=== PATIENT | female | born 1960 | race Caucasian/White ===

== ENCOUNTER → 2016-06-13 | Outpatient (CLI) | payer OTHER ==
[~2016-06-13] MED LIST: ABILIFY20 MG PO; ANTACID II 1601 CTB PO; ASPIR LOW81 MG PO; ATIVAN1 MG PO; ATIVAN2 M1 PO; ATOXIMETIN-B1 CAP; BENTYL10 MG PO; BENZTROPINE MESY1 MG PO; CIPRO500 MG PO; CITALOPRAM10 MG PO; COGENTIN0.5 MG PO; DEPAKOTE ER500 MG PO; DIVALPROEX SOD250 MG PO; EPIPEN1 MG/ML MR; FEOSOL325 MG PO; FLAGYL500 MG PO; HYDROCODONE BIT1 T11 PO; HYOSCYAMINE0.125 M5 PO; LIPITOR10 MG PO; LIPITOR40 MG PO; LISINOPRIL20 MG PO; MAGNESIUM OXID400 MG PO; MELOXICAM7.5 MG PO; MOTRIN800 MG PO; OLANZAPINE20 MG PO; OMEPRAZOLE40 MG PO; PRAVACHOL20 MG PO; PREDNISONE20 M1 PO; PRILOSEC20 M1 PO; PROAIR HFA8.5 GM INH; PYRIDIUM100 MG PO; REQUIP0.5 MG PO; RESTORIL15 MG PO; RISPERDAL2 M1 PO; RISPERDAL4 M1 PO; SEROQUEL100 MG PO; Synthroid,Levo75 MCG PO; VITAMIN D1000 IU PO; VITAMIN D350000 UNIT PO; VITAMIN D50000 I1 PO; VITAMIN D50000 I3 PO; ZANTAC 150150 MG PO; ZESTRIL20 MG PO; ZOLOFT50 MG PO
== END | disposition home or self-care (01) ==
LOC: ORTHO 03:41
DX: M17.12 Unilateral primary osteoarthritis, left knee (principal); M25.762 Osteophyte, left knee

== ENCOUNTER → 2017-01-16 | Outpatient (CLI) | payer MEDICAID | END | disposition home or self-care (01) | LOC: MRI 14:23 | DX: M47.897 Other spondylosis, lumbosacral region (principal) ==

== ENCOUNTER → 2017-05-29 | Outpatient (CLI) | payer MEDICAID | END | disposition home or self-care (01) | LOC: ORTHO 00:15 | DX: M17.12 Unilateral primary osteoarthritis, left knee (principal) ==

== ENCOUNTER → 2017-06-12 | Outpatient (CLI) | payer MEDICAID | END | disposition home or self-care (01) | LOC: ORTHO 02:39 | DX: M25.552 Pain in left hip (principal); M25.551 Pain in right hip ==

== ENCOUNTER → 2018-02-02 | Outpatient (CLI) | payer MEDICAID | END | disposition home or self-care (01) | LOC: ORTHO 07:12 | DX: M25.561 Pain in right knee (principal) ==

== ENCOUNTER → 2018-04-02 | Outpatient (CLI) | payer MEDICAID | END | disposition home or self-care (01) | LOC: ORTHO 01:09 | DX: M25.521 Pain in right elbow (principal) ==

== ENCOUNTER → 2018-04-30 | Outpatient (CLI) | payer MEDICAID | END | disposition home or self-care (01) | LOC: ORTHO 03:55 | DX: M25.512 Pain in left shoulder (principal) ==

== ENCOUNTER 2018-10-25 17:00 | Emergency (ER) | payer MEDICAID ==
[~2018-10-25] VITALS: Ht 167.6 cm; Wt 128.8 kg
[2018-10-25 17:01] VITALS: BP 159/57
== END 2018-10-25 19:45 | disposition home or self-care (01) ==
LOC: ED 17:00
DX: S80.01XA Contusion of right knee, initial encounter (principal); M25.551 Pain in right hip; Z79.899 Other long term (current) drug therapy; Z79.82 Long term (current) use of aspirin; Z88.0 Allergy status to penicillin; Z91.030 Bee allergy status; Z88.8 Allergy status to other drugs, medicaments and biological substances; W01.0XXA Fall on same level from slipping, tripping and stumbling without subsequent striking against object, initial encounter; Y93.01 Activity, walking, marching and hiking; Y92.89 Other specified places as the place of occurrence of the external cause; Y99.8 Other external cause status

== ENCOUNTER → 2018-11-05 | Outpatient (CLI) | payer MEDICAID ==
[~2018-11-05] MED LIST changes: +ARTHRITIS PAIN57 GM T; +DEPAKOTE ER250 MG PO; +DIVALPROEX SOD125 M1 PO; +FANAPT2 MG PO; +FANAPT8 MG PO; +HYDROXYZINE PAM25 M1 PO; +RISPERDAL3 M1 PO; -RISPERDAL4 M1 PO; +ROPINIROLE HYDRO1 MG PO; +ROPINIROLE HYDRO2 M2 PO; +ROZEREM8 MG PO; +SYNTHROID,LEV112 MCG PO; +TYLENOL EXTRA500 MG PO; +ZOLOFT100 MG PO
== END | disposition home or self-care (01) ==
LOC: ORTHO 01:36
DX: M70.61 Trochanteric bursitis, right hip (principal); M16.11 Unilateral primary osteoarthritis, right hip

== ENCOUNTER 2018-11-16 12:38 | Inpatient (IN) | payer MEDICAID ==
[~2018-11-16 12:38] MED LIST changes: -ARTHRITIS PAIN57 GM T; -DEPAKOTE ER250 MG PO; -DIVALPROEX SOD125 M1 PO; -FANAPT2 MG PO; -FANAPT8 MG PO; -HYDROXYZINE PAM25 M1 PO; -ROPINIROLE HYDRO1 MG PO; -ROPINIROLE HYDRO2 M2 PO; -ROZEREM8 MG PO; -SYNTHROID,LEV112 MCG PO; -TYLENOL EXTRA500 MG PO; -ZOLOFT100 MG PO
[2018-11-16 12:44] VITALS: BP 136/88
[2018-11-16 13:07] LABS: BILIRUBIN NEGATIVE (NEGATIVE); BLOOD NEGATIVE (NEGATIVE); CLARITY CLEAR (CLEAR); COLOR YELLOW (YELLOW); GLUCOSE NEGATIVE (NEGATIVE); KETONE NEGATIVE (NEGATIVE); LEUKO ESTERASE NEGATIVE (NEGATIVE); NITRITE NEGATIVE (NEGATIVE); PH 5.5 (5.0-9.0); SPECIFIC GRAVITY <= 1.005 (1.005-1.030); UROBILINOGEN 0.2 E.U./dl (0.2-1.0)
[2018-11-16 13:16] LABS: BACTERIA TRACE
[2018-11-16 13:17] LABS: URINE AMPHETAMINES < 1000 (1000ng/ml); URINE BARBITURATES < 200 (200ng/ml); URINE BENZODIAZEPINES < 200 (200ng/ml); URINE CANNABINOIDS (THC) < 50 (50ng/ml); URINE COCAINE < 300 (300ng/ml); URINE METHADONE < 300 (300ng/ml); URINE OPIATES < 300 (300ng/ml)
[2018-11-16 13:18] LABS: URINE PHENCYCLIDINE < 25 (25ng/ml)
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
[2018-11-16 14:01] LABS: BASO % 0.4 % (0.0-1.0); EOS % 0.5 % (1.0-4.0); HEMATOCRIT 32.2 % (37.0-47.0); HEMOGLOBIN 10.6 g/dl (12.0-16.0); LYMPH # 0.9 10*3/uL (1.3-4.4); LYMPH % 11.2 % (27.0-41.0); MEAN CELL VOLUME 95.5 fl (81.0-99.0); MEAN CORPUSCULAR HGB 31.5 pg (27.0-31.0); MEAN CORPUSCULAR HGB CONC 32.9 g/dl (33.0-37.0); MEAN PLATELET VOLUME 9.1 fl (9.6-12.3); MONO # 0.7 10*3/uL (0.1-1.0); MONO % 8.6 % (3.0-9.0); NEUT # 6.3 10*3/uL (2.3-7.9); PLATELET COUNT AUTOMATED 238 10*3/uL (130-400); RED BLOOD COUNT 3.37 10*6/uL (4.10-5.10); RED CELL DISTRI WIDTH 12.4 % (0-14.5); WHITE BLOOD COUNT 7.9 10*3/uL (4.8-10.8)
[2018-11-16 14:16] LABS: ALBUMIN 3.7 gm/dl (3.1-4.5); ALKALINE PHOSPHATASE 73 U/L (45-117); BUN 24 mg/dl (7-24); CHLORIDE 96 mmol/L (98-107); CREATININE 1.03 mg/dL (0.55-1.02); POTASSIUM 3.8 mmol/L (3.5-5.1); SGOT/AST 19 IU/L (3-35); SGPT/ALT 20 U/L (12-78); SODIUM 130 mmol/L (136-145)
[2018-11-16 14:21] LABS: ACETAMINOPHEN (TYLENOL) < 5.0 ug/ml (10-30); ETHYL ALCOHOL < 3.0 mg/dl (<3)
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
[2018-11-16 15:11] VITALS: BP 144/90
[2018-11-16 15:32] VITALS: BP 136/44
--- NOTE | 2018-11-16 15:32 | NUR ---
A 58, admitted to 5E, under the services of NOLAN Lane DO with a diagnosis of HYPONATREMIA. Chief complaint is PSYCHOLOGICAL COMPLAINTS. Patient arrived via bed from ER. Monitor applied. Initial assessment completed. Vital signs taken and recorded. NOLAN LANE DO notified of admission to the unit. Orders received. See assessment for past medical history, medications and allergies. Patient and/or family oriented to unit. [facility] visitation policy reviewed. Clothing/patient valuable form completed. MICHELLE PARHAM
[2018-11-16 16:00] VITALS: BP 128/54
--- NOTE | 2018-11-16 16:00 | NUR ---
PT STATES "DONT CALL SECURITY ON ME" SEEMS PARANOID AT THIS MOMENT. WILL MONITOR.
[2018-11-16] MEDS ORDERED: SYNTHROID,LEV112 MCG PO (16:02)
[2018-11-16] MEDS ORDERED: TYLENOL EXTRA500 MG PO (16:03)
[2018-11-16] MEDS ORDERED: OMEPRAZOLE40 MG PO (16:03)
--- NOTE | 2018-11-16 16:30 | NUR ---
[facility] NOTIFIED OF CONSULT
--- NOTE | 2018-11-16 17:01 | NUR ---
DR. KRAMER NOTIFIED OF COMPLETE MED REC
--- NOTE | 2018-11-16 18:17 | NUR ---
YANA CONSULTED AND WILL SEE PT TOMORROW.
--- NOTE | 2018-11-16 19:00 | NUR ---
ARRIVED ON SHIFT, INTRODUCED TO PATIENT, REPORT RECEIVED, WHITE BOARD UPDATED.
--- NOTE | 2018-11-16 19:06 | NUR ---
PT YELLS OUT, GO IN PT ROOM, SHE STATES SHE DID NOT YELL OUT OR NEED ANYTHING. WILL CONTINUE TO ASSESS NEEDS.
[2018-11-16 20:00] VITALS: BP 149/57
--- NOTE | 2018-11-16 20:41 | NUR ---
24 HR chart check completed.
--- NOTE | 2018-11-16 21:03 | NUR ---
PATIENT C/O BACK 05/16 AND REQUESTING SOMETHING FOR SLEEP, MEDICATED WITH TYLENOL AND RESTORIL ORDERED.
--- NOTE | 2018-11-16 22:03 | NUR ---
TYLENOL EFFECTIVE FOR PAIN, RESTORIL INEFFECTIVE PATIENT REMAINS AWAKE, SHE STATES "I AM BIPOLAR AND IN MY MANIC PHASE.
[2018-11-17] VITALS: BP 160/88
--- NOTE | 2018-11-17 00:04 | NUR ---
WENT IN TO PATIENTS ROOM TO ANSWER CALL LIGHT, SHE WAS LAYING IN BED WITH HER FINGER ON THE CALL LIGHT,SHE HAD PUULLED HER GOWN UP TO HER CHEST, I ASKED PATIENT WHAT I COULD HELP HER WITH, SHE STARTED YELLING, "I NEED TO TAKE A SHIT", I REMIND THE PATIENT I GAVE HER A DULCOLAX TAB AND IT MAY TAKE AWHILE TO WORK. SHE YELLED GET THE HELL OUT OF MY ROOM, I WANT THE SHAPE CARVER AND SECURITY. I NOTIFIED ELMO, WHO WAS TO COME DOWN AND SEE PATIENT.
--- NOTE | 2018-11-17 04:00 | NUR ---
Patient has not slept all night, she frequenly uses call light or yells out. She has been out in the cerna twice requesting the bedside commode which is in her room. She has scribbled nots on several different papers and requests for staff to read what she has weitten. She continually apologizes and states "I'm Bipolar, and I am in my manic phase." she yells, and tells staff get the hell out of her room.
[2018-11-17 06:37] LABS: BASO % 0.3 % (0.0-1.0); EOS # 0.1 10*3/uL (0.0-0.4); EOS % 0.8 % (1.0-4.0); HEMATOCRIT 31.2 % (37.0-47.0); LYMPH # 1.1 10*3/uL (1.3-4.4); LYMPH % 17.5 % (27.0-41.0); MEAN CELL VOLUME 97.2 fl (81.0-99.0); MEAN CORPUSCULAR HGB 31.2 pg (27.0-31.0); MEAN CORPUSCULAR HGB CONC 32.1 g/dl (33.0-37.0); MEAN PLATELET VOLUME 9.2 fl (9.6-12.3); MONO # 0.5 10*3/uL (0.1-1.0); MONO % 8.6 % (3.0-9.0); NEUT # 4.4 10*3/uL (2.3-7.9); NEUT % 72.5 % (47.0-73.0); PLATELET COUNT AUTOMATED 239 10*3/uL (130-400); RED BLOOD COUNT 3.21 10*6/uL (4.10-5.10); RED CELL DISTRI WIDTH 12.5 % (0-14.5); WHITE BLOOD COUNT 6.1 10*3/uL (4.8-10.8)
--- NOTE | 2018-11-17 06:54 | NUR ---
PHYSICAL THERAPY PT EVAL ATTEMPTED TODAY HOWEVER PATIENT IS BEING TRANSFERRED TO U AND THEREFORE PT ORDER IS CANCELLED AND PATIENT WILL REQUIRE NEW REFERRAL TO BE EVALUATED. THANK YOU FOR REFERRAL OZZIE MAHONEY PT
[2018-11-17 07:07] LABS: BUN 21 mg/dl (7-24); CHLORIDE 105 mmol/L (98-107); CHOLESTEROL 129 mg/dL (<200); CREATININE 0.92 mg/dL (0.55-1.02); PHOSPHOROUS 2.8 mg/dL (2.5-4.9); POTASSIUM 4.2 mmol/L (3.5-5.1); SODIUM 138 mmol/L (136-145); TRIGLYCERIDES 113 mg/dl (<150); VLDL CHOLESTEROL 23 mg/dL (6-40)
[2018-11-17 07:17] LABS: HDL CHOLESTEROL 54 mg/dl (40-60); LDL CHOLESTEROL 52 mg/dL (9-159)
[2018-11-17 08:00] VITALS: BP 155/73
--- NOTE | 2018-11-17 09:00 | NUR ---
PATIENT SCREAMING OUT MULTIPLE TIMES. WHEN STAFF ENTERS ROOM. SHE STARTS TALKING ABOUT MULTIPLE ISSUES. JUMPING FROM ONE TO ANOTHER TO ANOTHER. VERY DIFFICULT TO REDIRECT. PATIENT SCREAMS AT STAFF AND THEN WILL CALM DOWN AND SPEAK.
--- NOTE | 2018-11-17 10:15 | NUR ---
CALLED RICHIE PARDO REGARDING CONSULT. STATES SHE WILL BE IN TODAY TO SEE PATIENT.
--- NOTE | 2018-11-17 11:15 | NUR ---
RICHIE PARDO CALLED BACK. SHE WAS ABLE TO CONTACT [facility] AND VERIFY PATIENTS HOME MEDICATIONS. MEDICATION RECONCILLIATION COMPLETED AND DR. PORRAS NOTIFIED.
[2018-11-17] MEDS ORDERED: RESTORIL15 MG PO (11:24)
[2018-11-17] MEDS ORDERED: ROPINIROLE HYDRO2 M2 PO (11:26)
[2018-11-17] MEDS ORDERED: ATIVAN1 MG PO (11:27)
[2018-11-17] MEDS ORDERED: DEPAKOTE ER250 MG PO (11:28)
[2018-11-17] MEDS ORDERED: ZOLOFT100 MG PO (11:39)
--- NOTE | 2018-11-17 11:55 | NUR ---
client is known to me and i did see her in the er yesterday, but she had taken her depakote and her ativan so she was calm, she has not taken her meds for 4 days because they were at the neighbors, she was admitted medically and then through the night and am she was yelling, her nurse called to see if i could find out her home medications i did contact the [facility] and was able to get her medications, i did call and tell her nurse and she told me that she is going to be admitted to the [facility] here.
--- NOTE | 2018-11-17 13:40 | NUR ---
PATIENT DISCHARGED TO U. ALL PERSONAL BELONGINGS SENT WITH PATIENT. IV DISCONTINUED. DISCHARGE INSTRUCTIONS GIVEN AND REVIEWED. REPORT GIVEN TO U RN.
== END 2018-11-17 13:40 | disposition home health service (06) | DRG 426 ==
LOC: ED 12:38 → EDHOLD 15:02 → 5E 15:20
PROVIDERS: Emergency Medicine; Physician Assistant; Student in an Organized Health Care Education/Training Program; ADMIT Family Medicine
DX: E87.1 Hypo-osmolality and hyponatremia (principal); F31.10 Bipolar disorder, current episode manic without psychotic features, unspecified; R73.9 Hyperglycemia, unspecified; K21.9 Gastro-esophageal reflux disease without esophagitis; E03.9 Hypothyroidism, unspecified; M16.9 Osteoarthritis of hip, unspecified; E66.01 Morbid (severe) obesity due to excess calories; J45.909 Unspecified asthma, uncomplicated; I12.9 Hypertensive chronic kidney disease with stage 1 through stage 4 chronic kidney disease, or unspecified chronic kidney disease; N18.3 Chronic kidney disease, stage 3 (moderate); E55.9 Vitamin D deficiency, unspecified; D50.9 Iron deficiency anemia, unspecified; Z88.0 Allergy status to penicillin; Z88.8 Allergy status to other drugs, medicaments and biological substances; Z91.030 Bee allergy status; Z90.49 Acquired absence of other specified parts of digestive tract; Z90.710 Acquired absence of both cervix and uterus; Z90.79 Acquired absence of other genital organ(s); Z90.722 Acquired absence of ovaries, bilateral; Z82.49 Family history of ischemic heart disease and other diseases of the circulatory system; Z82.61 Family history of arthritis; Z82.3 Family history of stroke; Z83.3 Family history of diabetes mellitus; Z83.6 Family history of other diseases of the respiratory system; Z79.899 Other long term (current) drug therapy; Z79.82 Long term (current) use of aspirin; Z79.890 Hormone replacement therapy; Z68.42 Body mass index [BMI] 45.0-49.9, adult

== ENCOUNTER 2018-11-17 12:46 | Inpatient (IN) | payer MEDICAID ==
[~2018-11-17 12:46] MED LIST changes: +DEPAKOTE ER250 MG PO; +ROPINIROLE HYDRO2 M2 PO; +SYNTHROID,LEV112 MCG PO; +TYLENOL EXTRA500 MG PO; +ZOLOFT100 MG PO
--- NOTE | 2018-11-17 13:36 | NUR ---
RODNEY WILLOUGHBY a 58 year old F admitted via wheel chair from the ADMITTING as a voluntary admission. Arrived on unit at 1336. ALLERGIES: BEE STING,PCN,RED 40, CYCLOBENZAPRINE, DEXAMETHASONE, DIPHENHYDRAMINE, ETODOLAC, NABUMETONE. Vital signs are: [id number] 142/68. The client signed the following forms with stated understanding: Authorization For The Release of Medical Information, Clothing List, Consent to Voluntary Admission and Hospitalization, Consent and Release Forms/Receipt of Rights, Acknowledgement of Advance Directive Information, Behavioral Health Consent Form, and Informed Consent of Medications. Admitted under the services of Dr. SERGIO SHAH,[facility]. A search was conducted and hazardous articles were removed. Client was oriented to the unit. RICHIE MENJIVAR
[2018-11-17 13:42] VITALS: BP 142/68
--- NOTE | 2018-11-17 15:31 | NUR ---
DR. BARLOW NOTIFIED OF NEW ADMISSION. MEDICATIONS AND DIAGNOSIS LIST UPDATED FOR REVIEW. PATIENT WILL BE UNDER THE ARE OF DR. BARLOW.
--- NOTE | 2018-11-17 16:07 | NUR ---
PM/LEISURE SKILLS/MUSIC PT ATTENDED ALF THROUGH GROUP DUE JUST BEING ORIENTED TO UNIT. PT EXCITED TO WORK ON COLORING PICTURES AND HAS MANY INTERESTS. DUE TO PT JUST BEING ADMITTED THIS STAFF WILL PLAN TO DO ACTIVITY ASSESSMENT ON PT TOMORROW MORNING. PT WILL CONTINUE TO BE ENCOURAGED TO ATTEND AND PARTICIPATE IN FUTRUE GROUP SESSIONS.
--- NOTE | 2018-11-17 18:33 | NUR ---
P: VERBAL AGGRESSION, DISRUPTIVE TO MILIEU, SCREAMING AT FEMALE IMAGING TECHNOLOGIST "GET HER OFF THE UNIT, I DON'T WANT HER HERE, SHE A LESBIAN" DURING ADMISSION INTERVIEW PATIENT INFORM NURSE OF NOT WANTING ANY GAYS/LESBIAN ASSISTING WITH HER TO DEESCULATE WHEN BECOMING STRESSED. GAYS/LESBIANS ARE NOT MEANT TO BE, IT'S NOT IN THE BIBLE. PATIENT VOICING PARANOID STATEMENT "2 PEOPLE IN HER APARTMENT COMPLEX THREATENING MY LIFE" I: ONE ON ONE AND REDIRECTION PROVIDED R: EFFECTIVE; PATIENT IS ALERT TO PERSON, PLACE, TIME AND SITUATION; ABLE TO VOICE NEEDS. MOOD IS ANGRY /IRRITABLE,PARANOID AND LABILE. PREOCCUPIED WITH PAST TRAMATIC EVENTS AND MEDICATIONS. RAPID SPEECH-MANIC. MEDICATION COMPLIANT. Q 15 MINUTE SAFETY CHECKS MAINTAINED. 2 PERSON ASSIST WITH ALL INTERACTIONS. VERBAL CUEING WITH ACTIVITIES OF DAILY LIVING, CONTINENT OF BOWEL AND BLADDER. SET UP FOR MEALS, INTAKES ARE GOOD. AMBULATORY WITH STEADY GAIT. P: CONTINUE TO MONITOR FOR VERBAL AGGRESSION, INCREASED AGITATION AND BEING DISRUPTIVE TO MILIEU. CONTINUE TO PROVIDE ONE ON ONE; LIMIT SETTING; ENCOURAGE TO SIT IN QUIET ROOM FOR STIMULUS WHEN FEELING STRESSED AND PROVIDE SPACE NEEDED.
[2018-11-17 19:55] VITALS: BP 150/76
--- NOTE | 2018-11-17 20:01 | NUR ---
ON UNIT TO SEE PATIENT AT THIS TIME.
[2018-11-17 20:23] VITALS: BP 146/72
--- NOTE | 2018-11-17 21:51 | NUR ---
P-PATIENT LABILE WITH FOI. INTRUSIVE AT TIMES. PREOCCUPIED WITH A PREVIOUS FEMALE MANAGER MATERIAL AND STATING "I DONT WANT THAT LESBIAN UP HERE". SELECTIVE WITH HS MEDICATIONS. DELUSIONAL. I- 1:1 PROVIDED WITH REDIRECTION. REALITY PRESENTED. ENCOURAGED MEDICATION COMPLIANCE WITH EDUCATION. R- INTERVENTIONS MINIMALLY EFFECTIVE, PT REMAINS PREOCCUPIED WITH CERTAIN STAFF AND "LESBIANS". PT ALSO CONTINUES TO MAKE DELUSIONAL STATEMENTS IN REGARDS TO BEING OR JUST HAVING A BABY. PT DEMANDING/INTRUSIVE. PT REQUIRES FREQUENT REDIRECTION THROUGHOUT SHIFT. PT REFUSED HS DOSE OF DEPAKOTE DESPITE EDUCATION STATING "I REFUSE IT BECAUSE I DONT LIKE PINK, IM NOT TAKING IT", PT COMPLIANT WITH REMAINING MEDICATIONS. PT ALERT AND ORIENTED X4. NO PHYSICAL COMPLAINTS VOICED. P-CONTINUE TO MONITOR MOODS AND BEHAVIORS. PROVIDE 1:1 WITH REDIRECTION AND LIMIT SETTING NEEDED. ENCOURAGE MEDICATION COMPLIANCE. MAINTAIN Q 15 MIN CHECKS.
--- NOTE | 2018-11-18 01:54 | NUR ---
24 HOUR CHART CHECK COMPLETED.
--- NOTE | 2018-11-18 05:27 | NUR ---
PATIENT OBSERVED ON Q 15 MIN CHECKS TO HAVE SLEPT APPROX 6 HOURS INTERRUPTED WITH MULTIPLE AWAKENINGS TO HIT THE CALL LIGHT WITH VARIOUS WANTS AND DEMANDS. PT REQUIRES FREQUENT PROMPTING TO COMPLETE ADL'S INDEPENDENTLY, PT STATES "I CANT, IM ". INCONTINENT CARE PROVIDED X1. PT ALSO REDIRECTED ON MULTIPLE OCCASIONS ON APPROPRIATE BEHAVIOR, PT ATTEMPTED TO WALK AROUND ROOM NAKED IN FRONT OF ROOMMATE, PT ALSO ENTERED HALLWAY WITH ONLY A BLANKET COVERING HER. SIGNS OR SYMPTOMS OF DISTRESS NOTED.
[2018-11-18 06:37] LABS: THYROID STIM HORMONE (HS) 1.94 uIU/ml (0.358-4.75)
[2018-11-18 07:29] LABS: VITAMIN D, 25-HYDROXY 58.2 ng/mL (30-100)
[2018-11-18 08:03] VITALS: BP 164/82
--- NOTE | 2018-11-18 09:55 | NUR ---
DR. WONG ON UNIT TO ASSESS PATIENT.
--- NOTE | 2018-11-18 09:59 | NUR ---
psychosocial hx completed this date.
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
--- NOTE | 2018-11-18 15:04 | NUR ---
Shift chart check completed.
[2018-11-18 15:25] VITALS: BP 150/86
--- NOTE | 2018-11-18 17:48 | NUR ---
PATIENT COMPLAINING OF BILATERAL KNEE PAIN, RATING 10/10, BONE ON BONE. PRN TYLENOL 650MG PO GIVEN AT THIS TIME FOR PAIN. ALSO ENCOURAGED PATIENT TO EVELAVATE LOWER LEGS.
--- NOTE | 2018-11-18 19:21 | NUR ---
P: HYPERVERBAL- FOLLOWING STAFF, DEMENDING AT TIMES. MANIC. HIGH GIGGLE DURING MOVIE, AMINATED DURING INTERACTIONS. I: ONE ON ONE, REDIRECTION, CHANGE OF ENVIRONMENT WITH LOW STIMULI, LIMIT SETTING. R: EFFECTIVE; PATIENT IS ALERT X 4; ABLE TO VOICE NEEDS. MOOD IS LABILE, PREOCCUPIED, PARANOID; DENIES ANY HALLUCINATIONS, DELUSIONS, HI/SI. TYLENOL 650MG GIVEN AND EFFECTIVE. INDEPENDENT WITH ACTIVITIES OF DAILY LIVING, CONTINENT OF BOWEL AND BLADDER, SET UP FOR MEALS, INTAKES ARE GOOD WITH GOOD FLUID INTAKE. AMBULATORY WITH STEADY GAIT. MEDICATION COMPLAINT WITH EDUCATION PROVIDED. Q 15 MINUTE SAFETY CHECKS MAINTAINED. P: CONTINUE TO MONITOR FOR HALLUCINATIONS, DELUSION; PROVIDE ONE ON ONE, REDIRECTION, LIMIT SETTING AND SPACE NEEDED.
[2018-11-18 20:00] VITALS: BP 151/83
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
--- NOTE | 2018-11-19 00:39 | NUR ---
TYLENOL GIVEN FOR C/O RIGHT KNEE PAIN 09/15
--- NOTE | 2018-11-19 00:58 | NUR ---
CLIENT OUT TO DESK. STATES SHE IS HAVING BAD THOUGHTS. WENT TO HER ROOM. SHE HAD FLIGHT OF IDEAS, PERSECUTORY STORIES. CLIENT UNABLE TO FINISH A STORY WITHOUT CHANGING SUBJECT. STATES "I AM MANIC" REDIRECTED THAT SHE IS NOT AND IS JUST ANXIOUS. SHE REPLIED. "OH GOOD", ENCOURAGED HER TO GET SOME SLEEP AND WE WILL TALK IN THE MORNING
--- NOTE | 2018-11-19 03:46 | NUR ---
APPEARS TYLENOL EFFECTIVE
--- NOTE | 2018-11-19 04:00 | NUR ---
24 HR chart check completed.
--- NOTE | 2018-11-19 04:57 | NUR ---
SNORING IN ROOM. CIENT REFUSES TO LEAVE CLOTHING ON. SHEET OVER HER. DOOR CLOSED.
--- NOTE | 2018-11-19 06:41 | NUR ---
MEDICATIONS COMPLIANT. SLEPT LESS THAN 2 HOURS. INFORMED ME SHE WAS GOING TO SLEEP IN SHE WAS TIRED. EXPLAINED THAT IS WHY I WANTED HER TO SLEEP LAST NIGHT. REINFORCED MEETINGS WITH DR HILL, CASE MANAGEMENT, SWISS MACHINIST. THAT BREAKFAST WOULD BE HERE IN ABOUT AND HOUR THEN GROUP THERAPIES WILL BEGIN. VERBALIZED UNDERSTANDING.
--- NOTE | 2018-11-19 07:45 | NUR ---
PATIENT SITTING IN DINING ROOM WITH PEERS, EATING BREAKFAST. NO S/S OF DISTRESS NOTED. RESPS EVEN AND UNLABORED ON ROOM AIR.
[2018-11-19 08:00] VITALS: BP 130/60
--- NOTE | 2018-11-19 08:00 | NUR ---
Treatment Plan meeting with Dr. Martinez, RN, AT, SW and Cabinetmaker Apprentice. Plan for discharge at the end of the week, begininng of next week. Plan is for pt. to return home.
--- NOTE | 2018-11-19 08:33 | NUR ---
Nursing screen and Occupational Therapy referral received. Thank you. Jodi Ruiz OTR/L
--- NOTE | 2018-11-19 09:12 | NUR ---
PHYSICAL THERAPY Nursing screen received and chart reviewed. Physical therapy referral received. Thank you. Yeimy Bauer,PT,DPT.
--- NOTE | 2018-11-19 10:37 | NUR ---
Pt was hyperverbal and displaying flight of ideas as she met with this technical writer and editor in the AM. Pt spoke of her teeth, her dentist, her picture that she had colored, and of getting a little therapy dog.
--- NOTE | 2018-11-19 11:41 | NUR ---
AM GROUP/EXERCISE AND PARACHUTE PT ATTENDED AND PARTICIPATED IN ALL GROUP ACTIVITIES. PT EXHIBITED NO AGITATION AND WAS NOT VERBALLY AGGRESSIVE. PT WAS TALKATIVE BUT ON TASK.
--- NOTE | 2018-11-19 13:07 | NUR ---
Shift chart check completed.
--- NOTE | 2018-11-19 13:34 | NUR ---
PHYSICAL THERAPY Physical therapy evaluation attempted. Patient refusing PT evaluation, stating, "I'm really tired because of my pills. Can we do it another time?" Plan to return at a later date to complete PT evaluation. Thank you. Yeimy Bauer,PT,DPT
--- NOTE | 2018-11-19 13:46 | NUR ---
Occupational therapy orders received and chart reviewed. Patient was in bed upon OT/PT arrival. Patient stating that she "fell at home" recently. Patient not feeling up to the evaluation, stating "another time." OT will follow up with patient to complete the OT evaluation and POC. Thank you. Tonya Saldana, OTR/L
--- NOTE | 2018-11-19 14:42 | NUR ---
P- HYPERVERBAL. EUTHYMIC. RESTLESS. LETHARGIC. GRANDIOSE, SOMATIC. INTRUSSIVE, DEMANDING AT TIMES. I- ASSESS MOOD, ORIENTATION, SI/HI, HALLUCINATIONS, DELUSIONS, OR PAIN. PROVIDE WITH MEDICATIONS ON TIME WITH EDUCATION ON EACH. 1:1 THERAPEUTIC INTERACTION WITH EMOTIONAL SUPPORT AND VENTILATION OF FEELINGS PROVIDED. ENCOURAGE TO ATTEND/PARTICIPATE IN GROUP THERAPIES. OFFER LOW STIMULI ENVIRONMENT. PROVIDE WITH ACTIVITIES. ENCOURAGE TO STAY ON ONE TOPIC WHEN CONVERSING. OFFER COPING TECHNIQUES AND DEEP BREATHING. R- ALERT AND ORIENTED X3. MOOD STABLE, EUTHYMIC. DENIES SI/HI, HALLUCINATIONS OR PAIN. PATIENT PACING FROM ROOM TO DINING ROOM. HYPERVERBAL, CIRCUMSTANTIAL. PREOCCUPIED AND SOMATIC. PT STATED "I AM SO MANIC I FORGOT TO BREATHE". 1:1 INTERACTION EFFECTIVE. PT UTILIZING DEEP BREATHING. ATTENDING AND PARTICIPATING IN GROUP THERAPY. MEDICATION COMPLIANT. PT LAYING IN BED, STATING THAT SHE IS VERY TIRED FROM HER MEDICATION ADJUSTMENT. PT THEN WAS UP A FEW MINUTES LATER HYPERVERBAL, WALKING FROM ROOM TO DINING ROOM, AND GOING THROUGH COLORING PAGES TRYING TO GET OTHERS TO COLOR WITH HER. EATING AND DRINKING ADEQUATELY. GAIT STEADY WHILE AMBULATING. NO S/S OF INTERACTING WITH INTERNAL STIMULI. NO S/S OF DISTRESS NOTED. RESPS EVEN AND UNLABORED ON ROOM AIR. 1:1 EFFECTIVE. P- ASSESS MOOD, ORIENTATION, SI/HI, HALLUCINATIONS, DEULSIONS OR PAIN EVERY SHIFT. PROVIDE WITH MEDICATIONS ON TIME WITH EDUCATION ON EACH. 1:1 THERAPEUTIC INTERACTION WITH EMOTIONAL SUPPORT AND VENTILATION OF FEELINGS. ENCOURAGE TO USE COPING TECHNIQUES AND DEEP BREATHING. ENCOURAGE TO ATTEND/PARTICIPATE IN GROUP THERAPY. FALLING STAR PROGRAM IN PLACE. Q15 MINUTE CHECKS MAINTAINED FOR SAFETY.
--- NOTE | 2018-11-19 16:51 | NUR ---
PM GROUP/LEISURE SKILLS PT ATTENDED AND PARTICIPATED IN GROUP. PT DID NOT BECOME AGITATED OR VERBALLY AGGRESSIVE AT THIS TIME. PT PLEASANT ON TASK WITH ACTIVITY. PT WILL CONTINUE TO ATTEND AN DPARTICIPATE IN FUTURE GROUP SESSIONS.
[2018-11-19 20:00] VITALS: BP 139/72
--- NOTE | 2018-11-19 20:55 | NUR ---
EVENING GROUP PT ATTENDED AND PARTICIPATED IN ALL GROUP ACTIVITY'S. PT PLEASANT AND ON TASK WITH NO AGITATION OR VERBAL AGGRESSION AT THIS TIME. PT WILL CONTINUE TO ATTEND AND PARTICIPATE IN FUTURE GROUP SESSIONS.
--- NOTE | 2018-11-19 21:18 | NUR ---
P--INTRUSIVE, ATTENTION SEEKING, HYPERVERBAL, DISRUPTIVE I--ORIENTED TO REALITY. REDIRECTION. MEDICATED PER ORDERS. MEDICATION EDUCATION. REVIEWED COPING SKILLS. PREOCCUPIED WITH ALLEGATIONS SHE MADE YESTERDAY (THAT DIDN'T HAPPEN). FLIGHT OF IDEAS R--TALKED TO PHOTOGRAPHER NEWS ABOUT ISSUES FROM YESTERDAY. I AM BEING SO GOOD NOW. I AM GETTING READY TO GO HOME, DO YOU KNOW I TAKE 35 PILLS AT HOME. CAN I GET ATIVAN OR AM I TO DEPENDENT ON THEM? ARGUING JUST ISN'T WORTH IT ANYMORE P--MONITOR Q15 MINUTES AND PRN FOR SAFETY. MONITOR FOR CHANGES IN MOOD/BEHAVIOR. REINFORCE REALITY AND COPING SKILLS
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
--- NOTE | 2018-11-19 23:34 | NUR ---
UPSET THAT SHE HAS TO KEEP NIGHT GOWN ON. WANTS DOOR SHUT SO SHE CAN BE NAKED. REDIRECTED TO KEEPING GOWN OPEN AND TRYING TO REST. WILL MONITOR
--- NOTE | 2018-11-20 00:11 | NUR ---
24 HR chart check completed.
--- NOTE | 2018-11-20 03:26 | NUR ---
continues to fight sleep. calls out for anything to keep her alert. emotional support ineffective. admits to fighting sleep but states unable to help it.
--- NOTE | 2018-11-20 05:19 | NUR ---
HAS SLEPT LESS THAN 3 HOURS BROKEN. UP AND DOWN TO BATHROOM. PUSHING CALL LIGHT THEM SAYS "SORRY IT WAS AN ACCIDENT". UNABLE TO REDIRECT
--- NOTE | 2018-11-20 05:29 | NUR ---
CALLED TO HER ROOM TO SAY SHE WILL READ HER BIBLE TONIGHT AND IT WILL RELAX HER ( SHE HAS DONE THIS THE LAST 2 NIGHTS WITHOUT SUCCESS). CALLING STAFF TO ROOM TO HELP HER STAY AWAKE.
--- NOTE | 2018-11-20 05:42 | NUR ---
IN BATHROOM. EMERGENCY LIGHT ON. WENT INTO ROOM AND SHE AGAIN SAID SORRY HONEY IT WAS AN ACCIDENT. HAVE GONE WITH 2 STAFF MEMBERS ALL SHIFT TO SEE CLIENT
--- NOTE | 2018-11-20 05:55 | NUR ---
TRYING TO COME OUT WITHOUT PANTS ON. HER CLOTHING IS IN DRYER BUT SHE HAS JEANS AND SHE SAYS THEY ARE TOO TIGHT. TOLD TO STAY IN ROOM TILL PANTS DRIED WRAPPING A BLANKET AROUND HERSELF WITH PANTS IS INAPPROPRIATE
--- NOTE | 2018-11-20 06:21 | NUR ---
FOUND CLIENT HAS BEEN HOARDING LINENS, SHEETS AND BLANKETS IN ROOM. ROOM CLEANED AND CLIENT INFORMED DARIN ARREOLA AND MY SELF TALKED TO CLIENT ABOUT HER BEHAVIORS. SHE ADMITTED SHE DOESN'T FOLLOW OUR LESSONS BECAUSE SHE LIKES THE ATTENTION SHE GETS WHEN WE CORRECT HER. TOLD US SHE WAS GETTING A THERAPY DOG AND WHEN ASKED HOW SHE WOULD CARE FOR IT SHE DENIED GETTING A DOG. CLIENT EXIBITING GOOD PATIENT SYNDROME DURING OUR TALKS BUT CONTINUES TO NOT FOLLOW RULES AND REQUESTS.
[2018-11-20 07:50] VITALS: BP 148/67
--- NOTE | 2018-11-20 07:51 | NUR ---
Patient sitting quietly with no c/o discomfort. Respirations easy and regular. Vital signs stable. No overt distress. JENIFFER ROLLINS
--- NOTE | 2018-11-20 08:00 | NUR ---
Treatment Plan meeting with Dr. Martinez, RN, AT, SW and Regulatory Product Manager. Plan for discharge Next week. Pt. will return home.
--- NOTE | 2018-11-20 09:07 | NUR ---
RICHIE PARDO-CEMENT MASON NOTIFIED FOR COUNSELING SERVICES.
--- NOTE | 2018-11-20 10:22 | NUR ---
PT ATTENTION SEEKING THIS AM, WANDERING UP TO VARIOUS STAFF WITH MULTIPLE QUESTIONS, ATTEMPTING TO INTERUPT STAFF FROM 1:1 WITH OTHER PTS. SHE IS MEDICATION COMPLIANT AND AWARE OF MEDICATIONS PURPOSE. CONTINUES TO BE ALERT X 4 GAIT STEADY AT THIS TIME. NO DELUSIONS NOTED NO SI/HI THOUGHT PROCESS AT THIS TIME. CONTINUE 15 MIN CHECKS PER ORDER
--- NOTE | 2018-11-20 11:43 | NUR ---
AM GROUP/LIGHT AND MUSIC THERAPY PT ATTENDED AND PARTICIPATED IN MORNING GROUP THERAPY. PT WAS LESS TALKATIVE THAN YESTERDAY. PT WAS PURPOSEFUL AND ON TASK. PT EXHIBITED NO AGITATION OR VERBAL AGGRESSIVENESS WHILE IN GROUP
--- NOTE | 2018-11-20 12:54 | NUR ---
DR. BAUER ON UNIT TO ASSESS PATIENT FOR PODIATRY.
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
--- NOTE | 2018-11-20 13:22 | NUR ---
PT AT THIS TIME HAD COMPLAINT OF DRY MOUTH AND TOUNGUE, THEN STATED SHE IS SUPRISED HE HASN'T STARTED HER ON [place] YET FOR THE SIDE EFFECTS SHE IS HAVING. NONE NOTED BY THIS NURSE. CHAPSTICK GIVEN FOR DRY LIPS, DRINKS OFFERED AT THIS TIME.
--- NOTE | 2018-11-20 14:47 | NUR ---
PHYSICAL THERAPY Physical therapy referral received and screen performed. Pt is independent with ambulation and ADLs and does not require PT services. No PT needs at this time. Thank you Jeniffer Steward, PT, DPT
--- NOTE | 2018-11-20 14:48 | NUR ---
Occupational Therapy referral received and screen completed. Patient in group therapy session at this time. Ronna reports that patient is independent in all ADLs and ambulation on the 3N unit. At this time no further OT appears indicated. If patient should have a decline refer for further assessment. Discharge OT referral at this time. Jodi Ruiz OTR/L
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
--- NOTE | 2018-11-20 15:13 | NUR ---
PT SEEN BY HEIDI MARTINEZ CUTTER BRAKE LINING- STATED THAT SHE HAS MISSED A PULMONARY FUNCTION TEST AT [facility] WITH EDSON BERRIOS LPN FOLLOWED UP WITH [facility] AND NOTED THAT THERE IS NO APPOINTMENTS OR REFERALS OUTSTANDING FOR THIS PATIENT AT THIS TIME
--- NOTE | 2018-11-20 15:17 | NUR ---
PT RAMBLING WITH INTERACTION TODAY, SHE STATES THAT THE NEW MEDICATION HAS MADE HER MOUTH DRY. AT THIS TIME PT HAS NOT STARTED ON FANAPT DUE TO UNAVAILABLE FROM PHARMACY UNTIL THIS AFTERNOON. PT GIVEN CHAPSTICK. PT HAS ALSO HAD INCREASED ANXIETY DUE TO STAFF KEEPING TRACK OF PHONE CALLS OUT, DUE TO PT HAS REQUESTED MULTIPLE PHONE CALLS IN WHICH MESSAGES WERE LEFT. PT REDIRECTED AND CALMED BY ENCOURAGING BREATHING TECHNIQUES. IN WHICH SHE FOCUSED ON ANOTHER STAFF MEMBER THEY WALKED DOWN THE HALLWAY TO CONTINUE TO COMPLAIN ABOUT ANOTHER TOPIC. PT HAS FLIGHT OF IDEAS AND POOR COPING SKILLS AT THIS TIME
--- NOTE | 2018-11-20 15:17 | NUR ---
Spoke with Nurse Bronson at [facility] to inquire of Pt. stated Appointment at Dr. Figueroa office in [facility] for Pulmonary Function Test. Pt. states that Melissa Quesada referred her for appointment. Per Aiyana "No referral has been made to Dr. Figueroa at this time".
--- NOTE | 2018-11-20 15:56 | NUR ---
PM GROUP/ART AND MUSIC PT ATTENDED AND PARTICIPATED IN AFTERNOON GROUP THERAPY. PT WAS TALKATIVE BUT ON TASK. PT IS VERY HELPFUL WITH PEERS. PT EXHIBITED NO AGITATION NOR WAS VERBALLY AGGRESSIVE WHILE IN GROUP.
--- NOTE | 2018-11-20 18:19 | NUR ---
PT CONTINUES TO OBSESS ABOUT PHONE CALLS, WANTING TO CALL SHIVANI ROJAS EVEN THOUGH SHE HAS LEFT HIM A MESSAGE AND HE STATED HE WOULD CALL Monday. SPOKE WITH PT IN REFERENCE TO HER COPING SKILLS, SUCH BREATHING TECHNIQUES, IN WHICH SHE SHOWED ME SHE KNEW HOW TO DO. PT ALSO TALKED ABOUT HOW SHE GETS DEFENSIVE WHEN APPROACHED ABOUT THINGS, STATED DUE TO HER HISTORY SHE FEELS THE NEED TO DEFEND HERSELF DUE TO "THE STIGMA AROUND MENTAL HEALTH, AND THAT I AM FAT, PEOPLE ASSUME I AM DIABETIC" PT RAMBLED AND THEN WAS ABLE TO REFOCUS ON THE TASK OF COPING SKILLS. PT WROTE DOWN TIMES TO MAKE PHONE CALLS AND REVIEWED RULES OF THE UNIT, AND GUIDLINES TO FOLLOW WHEN TRYING TO REMAIN CALM. PT ALSO TOOK A BOOK TO READ TO HELP DISTRACT HER AT THIS TIME
[2018-11-20 19:55] VITALS: BP 160/62
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
--- NOTE | 2018-11-20 21:26 | NUR ---
WENT TO STAFF AND TRIED TO STAFF ABOUT HER ALLEGATIONS AGAINST THE FOOD AND NUTRITION SERVICES ASSISTANT. REDIRECTION WAS DONE
--- NOTE | 2018-11-21 04:39 | NUR ---
24 HR chart check completed.
--- NOTE | 2018-11-21 05:56 | NUR ---
SLEPT POOR ALL NIGHT. FINALLY FELL ASLEEP AROUND 5AM. IN AND OUTOF BED EVERY TIME SOMEONE WALKED PAST HER ROOM. SHUT DOOR PARTIALLY AND SHE FELL ASLEEP
[2018-11-21 07:43] VITALS: BP 155/85
--- NOTE | 2018-11-21 08:00 | NUR ---
Treatment Plan meeting with Dr. Martinez, RN, AT, SW and Urgent Care Nurse Practitioner. Plan for discharge Monday. Pt. will return home at discharge.
--- NOTE | 2018-11-21 11:47 | NUR ---
AM GROUP PT ATTENDED AND PARTICIPATED IN ALL GROUP ACITIVITES. PT WAS TALKATIVE BUT ON TASK. PT EXHIBITED NO AGITATION OR EXPRESSED ANY VERBAL AGGRESSION WHILE IN GROUP. PT IS PLEASANT AND HELPFUL TOWARDS OTHERS.
--- NOTE | 2018-11-21 12:25 | NUR ---
PT HAS DISPLAYED INCREASED CONTROL TODAY OVER IMPULSIVE BEHAVIORS SUCH ASKING FOR PHONE OR INTERUPTING OTHER PT WITH THEIR CARE. PT SPOKE ON PHONE THIS AM WITH JEFF, STATED SHE WAS HAPPY AND COULD WAIT TILL LATER TO TALK TO HIM AGAIN PRIOR TO BED. REDIRECTED NEEDED TO MAINTAIN APPROPRIATE BEHAVIOR, AT THIS TIME. PT DISPLAYING NO DELUSION OR HALLUCINATIONS NO SI OR HI THOUGHT PROCESS.
--- NOTE | 2018-11-21 12:25 | NUR ---
PT SPENT TIME WITH PASTORIAL SERVICES TODAY
--- NOTE | 2018-11-21 15:39 | NUR ---
PM GROUP PT ATTENDED AND PARTICIPATED IN ALL GROUP ACTIVITIES. PT EXPRESSED NO AGITATION OR AGGRESSION WHILE IN GROUP. PT PAINTED A BIRDHOUSE AND SOCIALIZED WITH PEERS AND THIS HAM CLERK.
[2018-11-21 19:39] VITALS: BP 148/88
--- NOTE | 2018-11-21 20:42 | NUR ---
met with client per consult from dr sutton, client is known to me for many years but i do not see her as an outpatient, she apparently told dr sutton she did. i did speak with her , she is mildly manic but she is able to converse and she is happy and working on a craft. client follows at [facility] and can be referred back there. i can follow with client while she is here as needed.
--- NOTE | 2018-11-22 00:28 | NUR ---
PATIENT RECEIVED PRN TYLENOL 65OMG AT 0015 REQUESTED FOR C/O A HEADACHE WITH A RATING OF 10/10. NO OTHER COMPLAINTS NOTED. WILL CONTINUE TO MONITOR FOR EFFECTIVENESS.
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
--- NOTE | 2018-11-22 03:51 | NUR ---
PT RESTING QUIETLY AT THIS TIME. PRN ATIVAN 1MG GIVEN AT 0135 EFFECTIVE. PT ALSO HAS NO FURTHER COMPLAINTS OF A HEADACHE NOTED. PRN TYLENOL GIVEN 0015 EFFECTIVE AT THIS TIME. NO SIGNS OR SYMPTOMS OF DISTRESS NOTED.
--- NOTE | 2018-11-22 04:00 | NUR ---
24 HOUR CHART CHECK COMPLETED.
--- NOTE | 2018-11-22 06:13 | NUR ---
PATIENT OBSERVED ON Q 15 MIN CHECKS TO HAVE SLEPT APPROX 4 HOURS INTERRUPTED. NO SIGNS OR SYMPTOMS OF DISTRESS NOTED.
--- NOTE | 2018-11-22 06:31 | NUR ---
PATIENT REFUSED AM PRILOSEC AFTER X2 ATTEMPTS. PT STATED SHE IS TIRED AND TO LEAVE HER ALONE.
[2018-11-22 07:56] VITALS: BP 160/67
--- NOTE | 2018-11-22 11:49 | NUR ---
AM GROUP PT ATTENDED MORNING GROUP THERAPY AND PARTICIPATED BY SOCIALIZING WITH PEERS. PT EXHIBITED NO AGITATION WHILE IN GROUP NOR WAS VERBALLY AGGRESSIVE/ASSAULTIVE.
--- NOTE | 2018-11-22 15:52 | NUR ---
PM GROUP PT ATTENDED AND PARTICIPATED IN AFTERNOON GROUP THERAPY. PT WAS TALKATIVE BUT ON TASK. PT EXHIBITED NO ANXIETY, AGITATION OR EXPRESSED ANY VERBAL AGGRESSION. PT IS CONVINCED THAT SHE IS BEING DISCHARGED TOMORROW.
[2018-11-22 19:35] VITALS: BP 155/76
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
--- NOTE | 2018-11-23 02:48 | NUR ---
24 HOUR CHART CHECK COMPLETED.
--- NOTE | 2018-11-23 05:37 | NUR ---
PT OBSERVED ON Q 15 MIN CHECKS TO HAVE SLEPT APPROX 3 HOURS THIS SHIFT INTERRUPTED. PT AWAKE AT THIS TIME IN DINING ROOM TO COLOR, CALM. NO FURTHER COMPLAINTS OF PAIN NOTED, PRN TYLENOL GIVEN AT 0151 EFFECTIVE.
[2018-11-23 07:35] VITALS: BP 143/73
--- NOTE | 2018-11-23 08:00 | NUR ---
The patient has no complaints and is resting comfortably. AFIA HESTER
--- NOTE | 2018-11-23 08:21 | NUR ---
CALLED PLACED TO DR STUBBS AND UPDATED DR OF PT DISCHARGE TIME OF 1100. STATED OK.
[2018-11-23] MEDS ORDERED: FANAPT8 MG PO (08:47)
[2018-11-23] MEDS ORDERED: ROZEREM8 MG PO (08:47)
[2018-11-23] MEDS ORDERED: FANAPT2 MG PO (08:47)
[2018-11-23] MEDS ORDERED: DIVALPROEX SOD125 M1 PO (08:47)
[2018-11-23] MEDS ORDERED: HYDROXYZINE PAM25 M1 PO (08:47)
[2018-11-23] MEDS ORDERED: ARTHRITIS PAIN57 GM T (08:47)
--- NOTE | 2018-11-23 11:03 | NUR ---
PT OFF THE UNIT AT THIS TIMNE TO BE DISCHARGED HOME. ACCOMPANIED BY MANAGER FORMS, MILIEU THERAPIST, AND FAMILY FRIEND. A&O X4. STABLE MOOD. NO SI/HI. NO HALLUCINATIONS OR DELUSIONS NOTED. PT BELONGINGS ACCOUNTED FOR AND SENT WITH PT. PT SIGNED ALL NECESSARY FORMS FOR DISCHARGE.
--- NOTE | 2018-11-23 11:51 | NUR ---
Patient discharged today to her apartment at [facility]. Pt's follow-up appointments were scheduled with Cindy Washington NP at [facility] office and with the [facility]. While at [facility], pt's mood stablized. Pt's yamila lessened. Pt was pleasant and cooperative and participated in programming.
== END 2018-11-23 11:03 | disposition home or self-care (01) | DRG 753 ==
LOC: 3N 12:46
PROVIDERS: ADMIT Psychiatry & Neurology Psychiatry
PROC: 0HBRXZZ Excision of Toe Nail, External Approach (ICD-10-PCS; principal; 2018-11-20)
PROC: 0HBRXZZ Excision of Toe Nail, External Approach (ICD-10-PCS; 2018-11-20)
PROC: 0HBRXZZ Excision of Toe Nail, External Approach (ICD-10-PCS; 2018-11-20)
PROC: 0HBRXZZ Excision of Toe Nail, External Approach (ICD-10-PCS; 2018-11-20)
PROC: 0HBRXZZ Excision of Toe Nail, External Approach (ICD-10-PCS; 2018-11-20)
PROC: 0HBRXZZ Excision of Toe Nail, External Approach (ICD-10-PCS; 2018-11-20)
PROC: 0HBRXZZ Excision of Toe Nail, External Approach (ICD-10-PCS; 2018-11-20)
PROC: 0HBRXZZ Excision of Toe Nail, External Approach (ICD-10-PCS; 2018-11-20)
PROC: 0HBRXZZ Excision of Toe Nail, External Approach (ICD-10-PCS; 2018-11-20)
PROC: 0HBRXZZ Excision of Toe Nail, External Approach (ICD-10-PCS; 2018-11-20)
DX: F31.60 Bipolar disorder, current episode mixed, unspecified (principal); K21.9 Gastro-esophageal reflux disease without esophagitis; E03.9 Hypothyroidism, unspecified; E66.01 Morbid (severe) obesity due to excess calories; I12.9 Hypertensive chronic kidney disease with stage 1 through stage 4 chronic kidney disease, or unspecified chronic kidney disease; M16.10 Unilateral primary osteoarthritis, unspecified hip; N18.9 Chronic kidney disease, unspecified; B35.1 Tinea unguium; Z82.3 Family history of stroke; Z82.49 Family history of ischemic heart disease and other diseases of the circulatory system; Z83.6 Family history of other diseases of the respiratory system; Z88.8 Allergy status to other drugs, medicaments and biological substances; Z88.0 Allergy status to penicillin; Z91.030 Bee allergy status; Z79.899 Other long term (current) drug therapy; Z79.890 Hormone replacement therapy; Z82.61 Family history of arthritis; Z90.49 Acquired absence of other specified parts of digestive tract; Z90.710 Acquired absence of both cervix and uterus; Z90.79 Acquired absence of other genital organ(s); Z90.722 Acquired absence of ovaries, bilateral; Z68.42 Body mass index [BMI] 45.0-49.9, adult

== ENCOUNTER 2018-11-25 13:34 | Emergency (ER) | payer MEDICAID ==
[~2018-11-25] VITALS: Ht 160 cm; Wt 79.4 kg
[~2018-11-25 13:34] MED LIST changes: +ARTHRITIS PAIN57 GM T; +DIVALPROEX SOD125 M1 PO; +FANAPT2 MG PO; +FANAPT8 MG PO; +HYDROXYZINE PAM25 M1 PO; +ROZEREM8 MG PO
[2018-11-25 13:36] VITALS: BP 152/89
[2018-11-26] MEDS ORDERED: PROAIR HFA8.5 GM INH (20:31)
[2018-11-26] MEDS ORDERED: ROPINIROLE HYDRO1 MG PO (20:42)
== END 2018-11-25 15:14 | disposition home or self-care (01) ==
LOC: ED 13:34
DX: R25.1 Tremor, unspecified (principal); Z76.0 Encounter for issue of repeat prescription; Z88.8 Allergy status to other drugs, medicaments and biological substances; Z91.030 Bee allergy status; Z88.0 Allergy status to penicillin; Z79.899 Other long term (current) drug therapy; Z90.710 Acquired absence of both cervix and uterus; Z90.49 Acquired absence of other specified parts of digestive tract

== ENCOUNTER 2018-11-26 18:59 | Emergency (ER) | payer MEDICAID ==
[~2018-11-26] VITALS: Ht 160 cm; Wt 124.7 kg
--- NOTE | ~2018-11-26 | EKG ---
[place], [place] ELECTROCARDIOGRAM REPORT NAME: RODNEY WILLOUGHBY UNIT #: [id number] ROOM: DOCTOR: EPIPHANY DRAFT REPORT BIRTHDATE: [birth year] [facility] Test Date: 2018-11-26 Test Time: 19:41:37 Pat Name: RODNEY WILLOUGHBY Department: Room: Gender: F Kennel Technician: : 1960 Requested By: KARLEY DALY Order Number: [id number] Reading MD: Derrick Parks Measurements Intervals [place] Rate: 104 P: 29 MT: 148 QRS: -1 QRSD: 81 T: 55 QT: 343 QTc: 452 Interpretive Statements Sinus tachycardia Abnormal R-wave progression, early transition Compared to ECG 04/27/2018 15:08:21 Sinus rhythm no longer present Electronically Signed On 11-28-2018 9:51:47 PDT by Derrick Parks CM:EKGRPT:ELECTROCARDIOGRAM REPORT [id number] KARLEY ALLEN DRAFT REPORT KARLEY DALY DO
[2018-11-26 19:47] LABS: BILIRUBIN NEGATIVE (NEGATIVE); BLOOD TRACE-INTACT (NEGATIVE); CLARITY CLEAR (CLEAR); COLOR YELLOW (YELLOW); GLUCOSE NEGATIVE (NEGATIVE); KETONE NEGATIVE (NEGATIVE); LEUKO ESTERASE NEGATIVE (NEGATIVE); NITRITE NEGATIVE (NEGATIVE); SPECIFIC GRAVITY <= 1.005 (1.005-1.030); UROBILINOGEN 0.2 E.U./dl (0.2-1.0)
[2018-11-26 19:53] LABS: BACTERIA TRACE; EPITHELIAL CELLS 0-2; RBC 0-2 rbc/hpf (0-2)
[2018-11-26 19:56] LABS: URINE AMPHETAMINES < 1000 (1000ng/ml); URINE BARBITURATES < 200 (200ng/ml); URINE BENZODIAZEPINES < 200 (200ng/ml); URINE CANNABINOIDS (THC) < 50 (50ng/ml); URINE COCAINE < 300 (300ng/ml); URINE METHADONE < 300 (300ng/ml); URINE OPIATES < 300 (300ng/ml)
[2018-11-26 20:01] LABS: URINE PHENCYCLIDINE < 25 (25ng/ml)
[2018-11-26 20:06] LABS: BASO % 0.2 % (0.0-1.0); EOS # 0.1 10*3/uL (0.0-0.4); HEMOGLOBIN 8.7 g/dl (12.0-16.0); LYMPH # 1.1 10*3/uL (1.3-4.4); LYMPH % 12.9 % (27.0-41.0); MEAN CELL VOLUME 93.9 fl (81.0-99.0); MEAN CORPUSCULAR HGB 31.4 pg (27.0-31.0); MEAN CORPUSCULAR HGB CONC 33.5 g/dl (33.0-37.0); MONO # 0.7 10*3/uL (0.1-1.0); MONO % 8.5 % (3.0-9.0); NEUT # 6.2 10*3/uL (2.3-7.9); NEUT % 76.5 % (47.0-73.0); PLATELET COUNT AUTOMATED 236 10*3/uL (130-400); RED BLOOD COUNT 2.77 10*6/uL (4.10-5.10); WHITE BLOOD COUNT 8.1 10*3/uL (4.8-10.8)
[2018-11-26 20:24] LABS: ACETAMINOPHEN (TYLENOL) 9.9 ug/ml (10-30); ALKALINE PHOSPHATASE 69 U/L (45-117); BUN 10 mg/dl (7-24); CHLORIDE 90 mmol/L (98-107); CREATININE 0.86 mg/dL (0.55-1.02); POTASSIUM 3.7 mmol/L (3.5-5.1); SGOT/AST 40 IU/L (3-35); SGPT/ALT 25 U/L (12-78); SODIUM 125 mmol/L (136-145); TOTAL PROTEIN 5.9 gm/dL (6.4-8.2)
[2018-11-26 20:25] LABS: ETHYL ALCOHOL < 3.0 mg/dl (<3)
[2018-11-26] MEDS ORDERED: PROAIR HFA8.5 GM INH (20:31)
[2018-11-26] MEDS ORDERED: ROPINIROLE HYDRO1 MG PO (20:42)
[2018-11-26 22:44] VITALS: BP 94/72
== END 2018-11-26 22:44 | disposition short-term general hospital (02) ==
LOC: ED 18:59
PROVIDERS: Emergency Medicine
DX: T42.6X2A Poisoning by other antiepileptic and sedative-hypnotic drugs, intentional self-harm, initial encounter (principal); R51 Headache; R47.81 Slurred speech; E72.20 Disorder of urea cycle metabolism, unspecified; F31.9 Bipolar disorder, unspecified; K21.9 Gastro-esophageal reflux disease without esophagitis; E03.9 Hypothyroidism, unspecified; I12.9 Hypertensive chronic kidney disease with stage 1 through stage 4 chronic kidney disease, or unspecified chronic kidney disease; N18.9 Chronic kidney disease, unspecified; J45.909 Unspecified asthma, uncomplicated; E66.01 Morbid (severe) obesity due to excess calories; Z88.8 Allergy status to other drugs, medicaments and biological substances; Z88.0 Allergy status to penicillin; Z91.030 Bee allergy status; Z91.041 Radiographic dye allergy status; Z79.899 Other long term (current) drug therapy; Z68.42 Body mass index [BMI] 45.0-49.9, adult; Z90.710 Acquired absence of both cervix and uterus; Z90.49 Acquired absence of other specified parts of digestive tract; Y92.89 Other specified places as the place of occurrence of the external cause